=== PATIENT | male | born 1975 | race Caucasian/White ===

== ENCOUNTER 2020-10-01 02:11 | Emergency (ER) | payer OTHER ==
[~2020-10-01] VITALS: Ht 182.9 cm; Wt 90.7 kg
[~2020-10-01 02:11] MED LIST: ADDERALL 20 MG20 MG PO; BACTRIM DS TAB1 EACH PO; BUPRENORPHINE HC8 MG SL; CELEXA40 MG PO; CLONAZEPAM2 MG PO; KEFLEX500 MG PO; KLONOPIN1 MG PO
[2020-10-01 02:45] VITALS: BP 128/56
== END 2020-10-01 02:45 | disposition home or self-care (01) ==
LOC: M.ERS 02:11
DX: F41.9 Anxiety disorder, unspecified (principal); R25.2 Cramp and spasm; Z90.89 Acquired absence of other organs; Z79.899 Other long term (current) drug therapy